=== PATIENT | female | born 1980 | race Caucasian/White ===

== ENCOUNTER → 2020-04-19 14:16 | Outpatient (CLI) | payer OTHER, SELFPAY ==
[2020-04-19 16:33] LABS: TSH w/ Reflex to FT4 2.86 uIU/mL (0.47-4.68)
== END ==
PROVIDERS: PCP Registered Nurse Diabetes Educator; Referring Provider Registered Nurse Diabetes Educator; Visit Provider Registered Nurse Diabetes Educator
DX: E03.9 Hypothyroidism, unspecified (principal)
CPT/HCPCS: 36415; 84443

== ENCOUNTER → 2020-05-06 08:35 | Outpatient (CLI) | payer OTHER, SELFPAY ==
[2020-05-08 20:36] LABS: AFP Value 37.9 ng/mL (.); Gest Age on Col Date 18.9 weeks (.); Insulin Dep Diabetes No (.); OSBR Risk 1IN 10000 (.); Results Report (.); Test Results *Screen Negative* (.)
== END ==
PROVIDERS: PCP Registered Nurse Diabetes Educator; Referring Provider Specialist; Visit Provider Specialist
DX: O09.521 Supervision of elderly multigravida, first trimester (principal); Z3A.18 18 weeks gestation of pregnancy
CPT/HCPCS: 36415; 82105

== ENCOUNTER → 2020-05-28 16:35 | Outpatient (CLI) | payer OTHER, SELFPAY ==
--- NOTE | 2020-05-28 16:36 | DI.US.S_ITS ---
PROCEDURE: US OB >= 14 WEEKS FETUS INDICATIONS: ANATOMY OUTSIDE/PRIOR DATING DATA: Last menstrual period (LMP): 12.25.19. LMP-based estimated date of delivery (MARLYN): 09.30.20 . First dating scan (date and location): 05.28.20 . Estimated date of delivery (MARLYN) from first dating scan: 09.30.20 . TECHNIQUE: Real-time scanning was performed of the fetus, with image documentation and biometric measurements. Endovaginal scanning: No COMPARISON: Amelie [facility], , OB >= 14 WEEKS FETUS, 05/06/2020, 8:17. FINDINGS: General: A single living intrauterine gestation is present. Presentation: Transverse with head to maternal left. Placenta: Placental position is posterior , without previa. Amniotic fluid index: 13.7 cm, normal range is 5-24 cm. heart rate: 158 beats per minute. Maternal cervical canal: 4.6 cm long. Normal lower limit is 2.5 cm. biometrics: Biparietal diameter: 542 mm; 22 weeks 3 days Head circumference: 200 mm; 22 weeks 1 day Abdominal circumference: 166 mm; 21 weeks 5 days Femur length: 383 mm; 22 weeks 2 days Estimated gestational age from initial scan: not applicable. Composite gestational age from present scan: 22 weeks 1 day Estimated weight and percentile: 466 g, which is at the 35th percentile for gestational age Measurement variability for biometric dating: +/- 7 days from 14 weeks to 15 weeks 6 days gestation, +/- 10 days from 16 weeks to 21 weeks 6 days gestation, +/- 2 weeks from 22 weeks to 27 weeks 6 days gestation, +/- 3 weeks for 28 weeks gestation or later. weight reference: 4500 g or EFW >90/95% is considered macrosomia or large for gestational age. EFW <10% is small for gestational age. EFW 5% or less is considered intra-uterine growth restriction. Anatomic survey: Neuro: Ventricles are non-dilated at less than 10 mm. Cisterna magna is normal at 3-11 mm. Cerebellum is normal in size and morphology. Nuchal skin fold: Normal at less than 6 mm between 14-21 weeks gestational age. Face: Nose and lips, facial profile are normal. Spine: No evidence for spina bifida. Heart: 4-chambered heart is present, with normal ventricular outflow tracts. Diaphragm: Diaphragm is intact. Stomach: Left-sided stomach is present. Kidneys: No hydronephrosis. Normal is less than 5 mm in 2nd trimester, less than 7 mm in 3rd trimester. Cord: 3-vessel cord has orthotopic insertion. Bladder: Normal in size. Extremities: All 4 extremities identified. IMPRESSION: 1. Single living intrauterine gestation. 2. Normal survey of anatomy. Dictated by: Ebonie Aldridge M.D. on 05/28/2020 at 18:22 Approved by: Ebonie Aldridge M.D. on 05/28/2020 at 18:25
[2020-05-28 17:17] LABS: Add Manual Diff / Slide Review NO; Basophils Absolute Auto 0 /uL (0-100); Basophils Percent Auto 0.5 % (0-2); Eosinophils Absolute Auto 0 /uL (0-450); Eosinophils Percent Auto 0.5 % (2-4); Hematocrit 35.7 % (36-46); Hemoglobin 12.6 g/dL (12.0-16.0); Lymphocytes Absolute Auto 1700 /uL (1100-4500); Mean Corpuscular HGB Conc 35.3 % (30-36); Mean Corpuscular Volume 96.3 fL (80-100); Monocytes Absolute Auto 800 /uL (0-900); Monocytes Percent Auto 8.6 % (3-14); Neutrophils Absolute Auto 6400 /uL (1500-7000); Neutrophils Percent Auto 71.4 % (50-75); Platelet Count 280 X10^3/uL (150-400); Red Blood Cell Count 3.71 X10^6/uL (4.0-5.2); Red Cell Distribution Width 13.3 % (11.6-14.8); White Blood Cell Count 8.9 X10^3/uL (4.5-11.0)
[2020-05-28 17:31] LABS: Appearance Urine UA CLEAR; Bilirubin Urine UA NEGATIVE (NEGATIVE); Color Urine UA YELLOW; Glucose Urine UA NEGATIVE (Negative); Ketones Urine UA NEGATIVE (NEGATIVE); Leukocyte Esterase Urine UA 1+ (NEGATIVE); Nitrite Urine UA NEGATIVE (Negative); Occult Blood Urine UA NEGATIVE (Negative); Protein Urine UA NEGATIVE (Negative); Specific Gravity Urine UA <=1.005 (1.000-1.035); Urobilinogen Urine UA 0.2 E.U./dL (0.2)
[2020-05-28 17:33] LABS: pH Urine UA 6.5 (4.5-8.0)
[2020-05-28 17:39] LABS: Bacteria Urine Occasional (0-1); Culture Indicated Urine Specimen Cultured; RBC Urine 0-1/HPF (0-5/HPF); Squamous Epithelial Cell Urine 0-1 /HPF (0-5/HPF); WBC Urine 1-5/HPF (0-5/HPF)
[2020-05-29 04:36] LABS: RPR Screen Non Reactive (Non Reactive)
[2020-05-29 07:36] LABS: Varicella IgG Antibody 422 index (Immune >165)
[2020-05-31 16:33] LABS: Hepatitis B Surface Antigen NEGATIVE s/c (NEGATIVE); Rubella Antibody IgG 7.7 IU/mL (>15)
[2020-05-31 16:47] LABS: HIV 1 & 2 Ab/Ag 4th Gen Combo NEGATIVE (NEGATIVE); Hep C Virus Ab w/Reflex Quant NEGATIVE s/c (NEGATIVE)
== END ==
PROVIDERS: PCP Registered Nurse Diabetes Educator; Referring Provider Specialist; Visit Provider Specialist
DX: Z34.82 Encounter for supervision of other normal pregnancy, second trimester (principal); Z3A.22 22 weeks gestation of pregnancy
CPT/HCPCS: 36415; 76811; 80055; 81003; 81015; 86787; 86803; 86850; 86900; 86901; 87086; 87389

== ENCOUNTER → 2020-06-18 14:36 | Outpatient (CLI) | payer OTHER, SELFPAY ==
[2020-06-18 16:32] LABS: Hemoglobin 12.3 g/dL (12.0-16.0)
[2020-06-18 17:04] LABS: GTT (PREG) 1 Hour PP 50gm Dose 85 mg/dL (76-139)
[2020-06-18 17:20] LABS: Free T4, Direct Thyroxine 0.98 ng/dL (0.78-2.19)
[2020-06-18 17:34] LABS: Thyroid Stimulating Hormone 1.95 uIU/mL (0.47-4.68)
== END ==
PROVIDERS: PCP Registered Nurse Diabetes Educator; Referring Provider Specialist; Visit Provider Specialist
DX: Z34.83 Encounter for supervision of other normal pregnancy, third trimester (principal); E03.9 Hypothyroidism, unspecified
CPT/HCPCS: 36415; 82950; 84439; 84443; 85014; 85018

== ENCOUNTER → 2020-08-17 14:11 | Outpatient (CLI) | payer OTHER, SELFPAY ==
[2020-08-17 17:10] LABS: Thyroid Stimulating Hormone 3.61 uIU/mL (0.47-4.68)
[2020-08-17 21:10] LABS: Urine N gonorrhoeae NOT DETECTED
[2020-08-17 21:29] LABS: Urine Chlamydia NOT DETECTED
== END ==
PROVIDERS: PCP Registered Nurse Diabetes Educator; Referring Provider Obstetrics & Gynecology; Visit Provider Obstetrics & Gynecology
DX: Z34.83 Encounter for supervision of other normal pregnancy, third trimester (principal); E03.9 Hypothyroidism, unspecified; Z3A.33 33 weeks gestation of pregnancy
CPT/HCPCS: 36415; 84439; 84443; 87491; 87591

== ENCOUNTER → 2020-11-16 11:55 | Outpatient (CLI) | payer OTHER, SELFPAY ==
[2020-11-16 15:12] LABS: Thyroid Stimulating Hormone < 0.015 uIU/mL (0.47-4.68)
== END ==
PROVIDERS: PCP Family Medicine; Referring Provider Family Medicine; Visit Provider Family Medicine
DX: E03.9 Hypothyroidism, unspecified (principal)
CPT/HCPCS: 36415; 84443

== ENCOUNTER → 2021-01-13 16:45 | Outpatient (CLI) | payer OTHER, SELFPAY ==
[2021-01-13 18:14] LABS: Thyroid Stimulating Hormone < 0.015 uIU/mL (0.47-4.68)
== END ==
PROVIDERS: PCP Family Medicine; Referring Provider Family Medicine; Visit Provider Family Medicine
DX: Z34.90 Encounter for supervision of normal pregnancy, unspecified, unspecified trimester (principal); E03.9 Hypothyroidism, unspecified
CPT/HCPCS: 36415; 84443

== ENCOUNTER → 2021-04-19 14:13 | Outpatient (CLI) | payer OTHER, SELFPAY ==
[2021-04-19 16:22] LABS: Thyroid Stimulating Hormone < 0.015 uIU/mL (0.47-4.68)
== END ==
PROVIDERS: PCP Family Medicine; Referring Provider Family Medicine; Visit Provider Family Medicine
DX: E03.9 Hypothyroidism, unspecified (principal)
CPT/HCPCS: 36415; 84443

== ENCOUNTER → 2021-04-21 16:50 | Outpatient (CLI) | payer OTHER, SELFPAY ==
[2021-04-21 18:20] LABS: Free T3, Triiodothyronine Free 3.27 pg/mL (2.77-5.27); Free T4, Direct Thyroxine 1.21 ng/dL (0.78-2.19)
[2021-04-21 18:34] LABS: Thyroid Stimulating Hormone < 0.015 uIU/mL (0.47-4.68)
[2021-04-22 13:11] LABS: Anti Thyroglobulin Antibody <1.0 IU/mL (0.0-0.9); Thyroid Peroxidase Antibodies <8 IU/mL (0-34)
== END ==
PROVIDERS: PCP Family Medicine; Referring Provider Family Medicine; Visit Provider Family Medicine
DX: E03.9 Hypothyroidism, unspecified (principal)
CPT/HCPCS: 36415; 84439; 84443; 84481; 86376; 86800

== ENCOUNTER → 2021-07-14 14:54 | Outpatient (CLI) | payer OTHER, SELFPAY ==
[2021-07-14 16:07] LABS: TSH w/ Reflex to FT4 0.11 uIU/mL (0.47-4.68)
[2021-07-14 16:37] LABS: Free T4, Direct Thyroxine 1.18 ng/dL (0.78-2.19)
== END ==
PROVIDERS: PCP Family Medicine; Referring Provider Family Medicine; Visit Provider Family Medicine
DX: E03.9 Hypothyroidism, unspecified (principal)
CPT/HCPCS: 36415; 84439; 84443

== ENCOUNTER → 2021-08-03 18:04 | Outpatient (CLI) | payer OTHER, SELFPAY ==
--- NOTE | 2021-08-03 18:04 | DI.MG.S_ITS ---
BILATERAL DIGITAL SCREENING MAMMOGRAM 3D/2D WITH CAD: 08/04/2021 CLINICAL: Routine screening. Family history of breast cancer. Comparison is made to exams dated: 09/23/2019 mammogram, 07/30/2018 mammogram, and 07/30/2018 ultrasound - outside location. The tissue of both breasts is extremely dense, which lowers the sensitivity of mammography. Current study was also evaluated with a Computer Aided Detection (CAD) system. There are benign post operative findings in the left breast. No significant masses, calcifications, or other findings are seen in either breast. There has been no significant interval change. IMPRESSION: BENIGN There is no mammographic evidence of malignancy. A 1 year screening mammogram is recommended. This exam was interpreted at Station ID: [id number]. NOTE: For mammograms, a report in lay terms will be sent to the patient. Approximately 15% of breast malignancies will not be visualized mammographically. In the management of a palpable breast mass, a negative mammogram must not discourage biopsy of a clinically suspicious lesion. Electronically Signed By: Thuan frey/william:08/04/2021 09:37:44 letter sent: Normal Exam ACR BI-RADS Category 2: Benign Finding(s) 3342F
== END ==
PROVIDERS: PCP Family Medicine; Referring Provider Family Medicine; Visit Provider Family Medicine
DX: Z12.31 Encounter for screening mammogram for malignant neoplasm of breast (principal); Z80.3 Family history of malignant neoplasm of breast
CPT/HCPCS: 77063; 77067

== ENCOUNTER → 2021-11-17 13:23 | Outpatient (CLI) | payer OTHER, SELFPAY ==
--- NOTE | 2021-11-17 13:48 | DI.ECHO.S_ITS ---
: : [id number] : : : : Phone: [phone] Echocardiogram Report + + :Name: HAYLEE HANEY Study Date: 11/17/2021 Height: 69 in : :[facility] ReadingLocation: Weight: 158 lb : : Gender: Female BSA: 1.9 m2 : :: 1980 Age: 41 yrs BP: 120/90 mmHg: :Reason For Study: BICUSPID AORTIC VALVE : :Ordering Physician: MONSTER, : :SMITA Performed By: Cristal Barr : :Referring: SMITA HOOK : + + Interpretation Summary 1) Normal left ventricular thickness, size, wall motion, and systolic function (EF 55-60%). 2) Normal right ventricular size and function. 3) Aortic valve is trileaflet. No significant valvular abnormalities noted. 4) No prior Echo available for comparison. Procedure: A two-dimensional transthoracic echocardiogram with color flow and Doppler was performed. The study quality was technically good. There is no prior echocardiogram noted for this patient. The patient was in sinus rhythm with heart rates between 72-86 bpm during the exam. Left Ventricle: The left ventricle is normal in size and wall thickness. The ejection fraction is estimated to be 55-60%. Left ventricular systolic function appears normal without focal wall motion abnormalities. Diastolic parameters suggest probable normal left ventricular diastolic function and normal filling pressures. Right Ventricle: The right ventricle is normal in size and function. Atria: The left atrial size is normal. Right atrial size is normal. There is no Doppler evidence for an interatrial shunt. Mitral Valve: The mitral valve is normal in structure and function. There is trace mitral regurgitation. Aortic Valve: The aortic valve is trileaflet. The aortic valve opens well. There is no aortic valve stenosis. No aortic regurgitation is present. Tricuspid Valve: The tricuspid valve is normal in structure and function. No tricuspid regurgitation. Pulmonary artery pressures cannot be estimated because of the lack of a measurable TR jet velocity but the IVC suggests a CVP of around 8 mmHg. Pulmonic Valve: The pulmonic valve leaflets are thin and pliable; valve motion is normal. There is no pulmonic valvular regurgitation. Great Vessels: The aortic root is normal size. The dimensions of the ascending aorta are normal. The IVC is dilated (diameter is greater than 2.1 cm) yet it collapses greater than 50% with a sniff. This suggests a right atrial pressure of 8 mm Hg. Pericardium/ Pleura There is no pericardial effusion. There is no pleural effusion. MMode/2D Measurements & Calculations LVIDd: 4.4 cm LVOT diam: 2.2 cm LVIDs: 3.1 cm Ao root diam: 3.2 cm FS: 31.0 % asc Aorta Diam: 2.8 cm IVSd: 0.66 cm Ao Arch Diam (Prox Trans): 2.4 cm LVPWd: 0.68 cm LV matthews. diameter/BSA (cm/m^2): 2.4 LV sys. diameter/BSA (cm/m^2): 1.6 LA A2 area: 20.0 cm2 RA long axis: 4.1 cm LA A4 area: 16.5 cm2 RA area: 13.0 cm2 LA length (vol): 4.5 cm RA vol: 34.8 ml LA vol: 62.7 ml RA : 18.6 ml/m2 LA vol index: 33.6 ml/m2 IVC diam: 2.1 cm RVD1 (basal): 2.9 cm TAPSE: 2.5 cm Doppler Measurements & Calculations Ao V2 max: 132.1 cm/sec LVOT Max Wolf: 84.5 cm/sec Ao V2 mean: 93.9 cm/sec LV V1 max P.9 mmHg Ao max P.0 mmHg LV V1 VTI: 17.8 cm Ao mean P.9 mmHg KADE(I,D): 2.6 cm2 Ao V2 VTI: 26.3 cm KADE(V,D): 2.4 cm2 sev ratio: 0.68 KADE indexed to BSA (cm^2/m^2): 1.4 MV E max wolf: 60.2 cm/sec PA V2 max: 77.9 cm/sec MV A max wolf: 38.7 cm/sec PA V2 mean: 53.7 cm/sec MV E/A: 1.6 PA mean P.3 mmHg Med Peak E' Wolf: 6.7 cm/sec PA pr(Accel): 29.3 mmHg E/E' med: 9.0 Lat Peak E' Wolf: 11.1 cm/sec E/E' lat: 5.4 E/e' average: 7.2 MV dec time: 0.22 sec SV(LVOT): 67.3 ml Reading Physician:10:09 AM
[2021-11-17 15:18] LABS: Thyroid Stimulating Hormone 0.725 uIU/mL (0.47-4.68)
== END ==
PROVIDERS: PCP Family Medicine; Referring Provider Internal Medicine Cardiovascular Disease; Visit Provider Internal Medicine Cardiovascular Disease
DX: Z00.00 Encounter for general adult medical examination without abnormal findings (principal); Z82.79 Family history of other congenital malformations, deformations and chromosomal abnormalities; E03.9 Hypothyroidism, unspecified
CPT/HCPCS: 36415; 84443; 93306